=== PATIENT | female | born 1980 | race Caucasian/White ===

== ENCOUNTER 2018-03-24 12:55 | Inpatient (IN) | payer BC, SELFPAY ==
[2018-03-24 13:21] LABS: HCT 37.6 % (36.0-46.0); HGB 13.3 g/dL (12.0-15.5); Mean Corp. HGB Concentration 35.4 g/dL (32.0-36.0); Mean Corpuscular Hemoglobin 31.3 pg (27.0-33.0); Mean Corpuscular Volume 88.5 fL (80-95); Platelet Count 208 x1000/uL (130-400); RBC 4.25 m/cumm (4.00-5.20); RBC Distribution Width 12.9 % (11.7-14.6); White Blood Cell Count 16.35 k/cumm (4.4-10.8)
[2018-03-24] MEDS: Lactated Ringers 1,000 ML 1000 ML IV (17:45)
[2018-03-24] MEDS: Lactated Ringers 1,000 ML 125 ML IV (18:56)
[2018-03-25] MEDS: Lactated Ringers 500 ML IV (01:00)
[2018-03-25] MEDS: Bupivacaine 0.25% Pres-Free 30 ML VIAL (01:30)
[2018-03-25] MEDS: fentaNYL 100 MCG/2 ML VIAL IT (01:30)
[2018-03-25] MEDS: Ondansetron 4 MG/2 ML VIAL IVP (07:08)
[2018-03-25] MEDS: Hamamelis Leaf/Glycerin 100 EACH BOX PR (10:02)
[2018-03-25] MEDS: Scopolamine 1 MG/3 DAYS PATCH TD (10:03)
[2018-03-25] MEDS: Docusate Sodium 100 MG CAP PO (10:03)
[2018-03-25] MEDS: Lactated Ringers 1,000 ML 125 ML IV (10:04)
[2018-03-26] MEDS: Acetaminophen 325 MG TAB 650 MG PO ×2 (15:36→20:53)
[2018-03-26] MEDS: Ibuprofen 600 MG TAB PO ×2 (15:37→20:53)
[2018-03-27] MEDS: Acetaminophen 325 MG TAB 650 MG PO ×2 (02:01→09:19)
[2018-03-27] MEDS: Docusate Sodium 100 MG CAP PO (09:19)
[2018-03-27] MEDS: Hamamelis Leaf/Glycerin 100 EACH BOX PR (09:19)
[2018-03-27] MEDS: Ibuprofen 600 MG TAB PO (09:20)
== END 2018-03-27 14:00 | disposition home or self-care (01) | DRG 807 ==
PROVIDERS: Admitting Provider Family Medicine; PCP Family Medicine; Visit Provider Family Medicine
DX: O48.0 Post-term pregnancy (principal); Z37.0 Single live birth; O75.81 Maternal exhaustion complicating labor and delivery; Z3A.40 40 weeks gestation of pregnancy; O63.0 Prolonged first stage (of labor); O63.1 Prolonged second stage (of labor); O70.1 Second degree perineal laceration during delivery
CPT/HCPCS: 36415; 85027; 86850; 86900; 86901; J2405; J3010

== ENCOUNTER 2019-12-15 01:08 | Outpatient (CLI) | payer BC, SELFPAY ==
--- NOTE | 2019-12-15 | DI.US_ITS ---
EXAM: US OB 2-3 TRIMESTER CLINICAL HISTORY: SURVEY. TECHNIQUE: Transabdominal obstetrical ultrasound performed. COMPARISON: No exams were available for comparison FINDINGS: Number of fetuses: One. position: Vertex. heart rate: 149 bpm. Placental location: Posterior. No evidence of previa. BIOMETRIC DATA: EFW: 302 grms 39 % Composite Age: 19+ 4 weeks EDC: 06 May 2020 Amniotic fluid:. Amount of fluid is within normal limits. 2.3 centimeter anterior uterine fibroid. ANATOMICAL SURVEY: Within normal limits. IMPRESSION: 1. Single live intrauterine gestation as above. 2. Normal anatomic survey. DATA REPOSITORY:
== END 2019-12-15 01:28 ==
PROVIDERS: PCP Family Medicine; Visit Provider Family Medicine
DX: Z34.92 Encounter for supervision of normal pregnancy, unspecified, second trimester (principal)
CPT/HCPCS: 76805

== ENCOUNTER 2020-05-11 02:46 | Inpatient (IN) | payer BC, SELFPAY ==
[2020-05-11] VITALS (18 sets, daily range): BP systolic 114–158; BP diastolic 65–99; PULSE 59–202; RESP 16–22; TEMP 36.8–37; O2SAT 84–99
[2020-05-11] MEDS: Normal Saline Flush 10 ML SYR IVP (04:20)
[2020-05-11] MEDS: Penicillin G POT. 5,000,000 UNITS in Normal Saline 100 ML 200 UNITS IVPB (04:35)
[2020-05-11] MEDS: Normal Saline 100 ML 200 ML (04:35)
[2020-05-11 04:43] LABS: HCT 40.1 % (36.0-46.0); HGB 13.4 g/dL (11.2-15.7); MCH 30.2 pg (27.0-33.0); MCHC 33.4 % (32.0-36.0); MCV 90.3 fL (80-95); MPV 11.9 fL (8.0-11.0); Platelet Count 220 10^3/uL (130-400); RBC 4.44 10^6/uL (3.93-5.22); RDW 13.1 % (11.7-14.6); RDW-SD 42.5 fL; WBC 10.59 10^3/uL (4.4-10.8)
[2020-05-11 04:43] LABS: Source Nasopharynx
--- NOTE | 2020-05-11 04:53 | W.PM.OBHPL1 ---
Date of service: 05/11/20 Time of Service: 04:53 Assessment and Plan Assessment and plan (1) : Status: Acute Assessment and plan: at 40.6 presented in active labor. Contractions began at about 1am and quickly progressed to every 3 minutes. No ROM at home. When she arrived to the hospital SVE was 10/100/-1 with bulging bag. FHT category 1. She is requesting Nitrous for pain which was helpful. GBS+ so abx started. Rh+ RI HepB-. Anticipate quickly. Qualifiers: Weeks of gestation: 40 weeks Qualified Code(s): Z3A.40 - 40 weeks gestation of (2) GBS (group B Streptococcus carrier), +RV culture, currently : Status: Acute Assessment and plan: Pen G started with 5mu dose followed by 3mu q4h although doubtful she will get a second dose. OB-HPI Labor/Delivery History of Present Illness Reason for Visit: TERM LABOR Chief Complaint: Uterine Contractions. ARMANDO Calculator Estimated Delivery Date Method Current WG Current Estimate 05/05/20 LMP (Certain) 40w 6d History of Present Expected Delivery Route/Plan Specific Issues/Plan GBS+ in urine at initial OB Review of Systems All systems reviewed & are unremarkable except as noted in HPI and below PFSH Social History Smoking/Tobacco Use Status: Former Tobacco Use Smoking risk assessment performed?: Yes Meds Home Medications and Allergies Home Medications Medication Instructions Recorded Confirmed Type vit-iron fum-folic ac 1 tab PO DAILY 03/24/18 03/25/18 History [ Vitamin] Allergies Allergy/AdvReac Type Severity Reaction Status Date / Time No Known Allergies Allergy Unverified 03/24/18 16:19 Exam Physical Exam Vital signs: Pulse BP 69 115/70 05/11/20 04:50 05/11/20 04:50 Detailed Labor and Delivery Exam Delvalle Score: Cervical Points Exam 0 1 2 3 Dilation Closed 1-2cm 3-4 cm 5-6cm Effacement 0-30% 40-50% 60-70% 80% Consistency Firm Medium Soft Station -3 -2 -1,0 +1,+2 Position Posterior Mid Anterior Fetus A Heart Rate Baseline: 120 Monitor Accelerations: Present Monitor Decelerations: None Variability: Moderate (6-25 BPM) Presentation: Vertex Categories: Category I HEENT Exam HEENT Exam: Normal Cardiovascular Exam Cardiovascular Exam: Normal Exam Exam: Normal Results Abnormal Lab Findings: Abnormal Labs 05/11/20 04:30 MPV 11.9 H Risk Assessment Risk for Shoulder Dystocia Historical/Initial OB: NEGATIVE FOR: Pelvic Abnormality, Pre- BMI>30, Previous Shoulder Dystocia or Previous Macrosomia 40 Weeks: NEGATIVE FOR: EFW> 4500 gms, Maternal Weight Gain >40lb or Post Dates Increased Risk?: No Risk for Pre-Eclampsia Daily Dose ASA Indicated: No Yes, if one or more: NEGATIVE FOR: Hx Pre-E/Gest HTN, Chronic HTN, Multiple Gestation, Pre-gestational DM, Renal Disease, Systemic Lupus or APA Syndrome Yes, if 2 or more: POSITIVE FOR: Age>= 35 yrs; NEGATIVE FOR: Nulliparity, >10yr btwn pregnancies, BMI>30, ethinicty, Mother/Sister w/ Pre-E or Previous IUGR Risk for Post- Hemorrhage Initial: NEGATIVE FOR: Multiple Gestation, Previous PPH, Known Clotting Deficiency, Grand Multiparity or Anticoagulation At Risk?: No Risks Reviewed Risks Reviewed Upon Admission: Yes
[2020-05-11 05:21] LABS: Influenza A PCR Negative (Negative); Influenza B PCR Negative (Negative); RSV PCR Negative (Negative)
[2020-05-11 05:34] LABS: COVID-19 PCR Negative (Negative)
[2020-05-11] MEDS: miSOPROStol 200 MCG TAB 400 MCG PO (06:20)
[2020-05-11] MEDS: Oxytocin 10 UNITS/ML VIAL IM (06:30)
[2020-05-11] MEDS: Oxytocin/Normal Saline 30 UNIT/500 ML BAG 95 UNITS IV (06:45)
[2020-05-11] MEDS: Lidocaine 1% Multi-Dose 20 ML VIAL IJ (07:00)
--- NOTE | 2020-05-11 07:15 | OBVDS_ITS ---
Date of service: 05/11/20 Time of Service: 07:15 OB Labor/ Delivery Information Baby A Delivery Delivery Method: Spontaneaous Presentation: Vertex Vertex Position: Left Occipital Anterior Cord Description-Baby A: 3 Vessels Amniotic Fluid: Meconium Estimated Blood Loss: 400 Delivery Outcome: Liveborn Complications: none Infant Transferred: Remains with Mother Note: 40 yo who presented at 40 weeks and 6 days in active labor. Arrived fully dilated. Used nitrous with good effect. AROM performed for mec stained fluid. She then commenced pushing and after a position change to hands and knees, pushed effectively to deliver a liveborn female over a second degree laceration with small extension into the right vaginal sidewall. One nuchal cord was easily reduced. Placenta delivered soon thereafter and was intact with three vessel cord. Pitocin IV started but IV malfunctioned briefly so IM pitocin was given due to boggy uterus. After IM pit, uterus was firm. IV pit given as well. Placenta delivered soon thereafter and was intact with three vessel cord. Perineum repaired in the usual fashion with good hemostasis achieved. Slow trickle of blood still present. Miso given. Fundus firm. Bimanual performed and clot extracted from lower uterine segment with decrease in bleeding. Mom and baby bonding well. Providers Doctor: Ayah Flynn Business Executive: Vinny Osullivan Nurse: Tona Garcia RN Nurse: Agustina Robb Other: Alex Osullivan Labor/Delivery Information Number of Babies in Womb: 1 Steroids Given: None Reason Steroids Not Administered: N/A Group Beta Strep: Positive Antibiotics Administered: Yes Number of Doses of Antibiotics: 1 Medication in Delivery: Oxytocin IV, Oxytocin IM, 400mcg misoprostol PO Maternal Complications: None Shoulder Dystocia: No Stages of Labor Onset of Labor Date: 05/11/20 Onset of Labor Time: 01:00 Complete Dilatation Date: 05/11/20 Complete Dilatation Time: 04:10 Labor - Stage 1 Duration: 0 minutes ROM Baby A: 05/11/20 ROM Baby A: 05:25 ROM Total Time- Baby A: [id number] Infant Delivery Date-Baby A: 05/11/20 Delivery Time-Baby A: 06:02 Labor Stage 2 Duration: 1 hours and 52 minutes Placenta Delivery Date-Baby A: 05/11/20 Placenta Delivery Time-Baby A: 06:10 Labor-Stage 3 Duration: 8 minutes Total Length of Labor-Baby A: 5 hours and 2 minutes Placenta Cultured: No Placenta Status: Delivered Baby A Gender: Female Gestational Status: Term (39-41.6 wks) Gestational Age in Weeks/Days: 40 Weeks and 6 Days Score-1 Minute Interval(Baby A) Heart Rate-1 minute: 100 BPM or Greater Respiratory Effort- 1 minute: Spontaneous/Strong Cry Muscle Tone-1 minute: Active Movement Reflex Response-1 minute: Prompt Response Color-1 minute: Pallor or Cyanosis Total Score-1 minute: 8 Score-5 Minute Interval(Baby A) Heart Rate- 5 minute: 100 BPM or Greater Respiratory Effort-5 minute: Spontaneous/Strong Cry Muscle Tone-5 minute: Active Movement Reflex Response-5 minute: Prompt Response Color-5 minute: [place]/No Cyanosis Total Score- 5 minute: 10 Interventions Repair of Laceration Type: Perineal , Laceration Extension: Second Degree . Sponge Count Correct: Yes , Sharp Count Correct: Yes . Laceration Repair Note: Small second degree laceration with extension into right vaginal side wall sustained. Analgesia with 1% lidocaine achieved. Repair done in the usual fashion with 3.0 vicryl. Good hemostasis achieved
[2020-05-11] MEDS: Acetaminophen 325 MG TAB 650 MG PO ×3 (08:45→22:24)
[2020-05-11] MEDS: Ibuprofen 600 MG TAB PO ×3 (08:45→22:25)
[2020-05-11] MEDS: Hamamelis Leaf/Glycerin 100 EACH BOX PR (08:46)
[2020-05-11] MEDS: Docusate Sodium 100 MG CAP PO (16:35)
[2020-05-12 05:35] VITALS: BP 124/87; PULSE 67; RESP 18; TEMP 36.4; O2SAT 96
[2020-05-12] MEDS: Docusate Sodium 100 MG CAP PO ×2 (05:37→19:45)
[2020-05-12] MEDS: Ibuprofen 600 MG TAB PO ×3 (05:38→19:45)
[2020-05-12] MEDS: Acetaminophen 325 MG TAB 650 MG PO ×3 (05:38→19:45)
[2020-05-12 07:07] LABS: HCT 34.2 % (36.0-46.0); HGB 11.6 g/dL (11.2-15.7); MCH 30.6 pg (27.0-33.0); MCHC 33.9 % (32.0-36.0); MCV 90.2 fL (80-95); MPV 11.9 fL (8.0-11.0); Platelet Count 184 10^3/uL (130-400); RBC 3.79 10^6/uL (3.93-5.22); RDW 13.4 % (11.7-14.6); RDW-SD 43.4 fL; WBC 9.38 10^3/uL (4.4-10.8)
--- NOTE | 2020-05-12 08:47 | W.PM.OBPNV1 ---
Date of service: 05/12/20 Time of Service: 08:47 Assessment and Plan Assessment and plan (1) Routine follow-up: Status: Acute Assessment and plan: Luis is doing very well on PPD 1, no concerns. Nursing going well. Has a breast pump at home. Routine care. Anticipate home tomorrow. Subjective Subjective Patient comments: No complaints baby status: Doing well, Nursing well, Rooming in and Strong Bonding Observed feeding status: Exclusively breast feeding Narrative: Luis is doing well. Bleeding minimal, up and about, voiding, no BM yet. Pain minimal. Nursing is going well, still working on latch. Exam Physical Exam Vital signs: Temp Pulse Resp BP Pulse Ox 36.4 C L 67 18 124/87 96 05/12/20 05:35 05/12/20 05:35 05/12/20 05:35 05/12/20 05:35 05/12/20 05:35 Constitutional Constitutional: no acute distress Fundal Exam Fundus: Below Umbilicus and Firm Extremities Exam Extremity Exam: Normal Results Hemoglobin/Hematocrit: Hgb 11.6 g/dL (11.2-15.7) 05/12/20 06:54 Hct 34.2 % (36.0-46.0) L 05/12/20 06:54 Abnormal Lab Findings: Abnormal Labs 05/11/20 05/12/20 04:30 06:54 RBC 3.79 L Hct 34.2 L MPV 11.9 H 11.9 H
[2020-05-12 11:35] VITALS: BP 114/72; PULSE 69; RESP 18; TEMP 36.7; O2SAT 95
[2020-05-12 15:45] VITALS: BP 127/82; PULSE 64; RESP 18; TEMP 36.9; O2SAT 98
[2020-05-13 00:27] VITALS: BP 124/56; PULSE 56; RESP 19; TEMP 36.8; O2SAT 96
[2020-05-13] MEDS: Acetaminophen 325 MG TAB 650 MG PO (06:23)
[2020-05-13] MEDS: Docusate Sodium 100 MG CAP PO (06:23)
[2020-05-13] MEDS: Ibuprofen 600 MG TAB PO (06:24)
[2020-05-13 07:53] VITALS: BP 116/74; PULSE 71; RESP 18; TEMP 36.8; O2SAT 97
--- NOTE | 2020-05-13 08:06 | W.PM.OBDISCH ---
Date of service: 05/13/20 Time of Service: 08:07 DS: Diagnosis Discharge Diagnosis (1) Routine follow-up: Status: Acute Asessment and Plan: 40 yo >2 who delivered via at 40w6d 2 days ago. She has done very well . is going well. Mood is good, bonding well with baby. Minimal bleeding/cramping. Eating/drinking well and passing gas, but no BM yet. She will be discharged home today, follow up in the office in 2 weeks and 6 weeks. We will see her Sunday with the baby. Discharge Plan Disposition Patient Disposition: HOME Condition: Good Discharge Details Reason For Visit: TERM LABOR Admit Date/Time: 05/11/20 06:32 Admit Provider: Vinny Osullivan Attending Provider: Vinny Osullivan Primary Care Provider: Vinny Osullivan Hospital Course Hospital Course: 40 yo now 2 who presented at 40w6d in active labor, 10cm on arrival to the hospital. She proceeded to have an uncomplicated over a small second degree perineal laceration. See H&P and delivery note for futher details. She was GBS positive, only received one dose in labor due to rapid labor. Baby was monitored for 48 hours with no signs of sepsis. Baby was LGA, passed blood sugar protocol. APGARs 8/10. She did well with minimal bleeding and discomfort. Mood was excellent. Voiding well, passing gas. Home Meds and New Rx's Prescriptions: New acetaminophen [Tylenol] 325 mg Tablet 650 mg PO Q4H PRN PRNQty: 0 RF: 0 docusate sodium [Colace] 100 mg Capsule 100 mg PO BID PRN PRNQty: 0 RF: 0 ibuprofen [IBU] 600 mg Tablet 600 mg PO Q6H PRN PRNQty: 0 RF: 0 Continued Vitamin 27 mg iron- 0.8 mg Tablet 1 tab PO DAILY RF: 0 Discharge Instructions Stand Alone Forms: BC Instructions, BC Post Vaginal Deliver Referrals: Vinny Osullivan [Primary Care Provider] - (Follow up in 2 weeks and 6 weeks.) Activity:: Activity as Tolerated Equipment/Supplies:: No Equipment Needed Diet:: As Tolerated Discharge Orders Discharge Orders: Discharge Order (Routine); Ordered 05/13/20 Ordered By: Ayah Flynn OB:DS Summary Summary Vaginal Delivery Method: Spontaneaous Laceration Description: Perineal Laceration Extension: Second Degree complications OB DS: none Contraception Discussed Contraception Discussed: No, Gender-Baby A: Female weight: 4170 g Disposition of Baby A: Home Status at Discharge Functional status at discharge: independent ambulation Overall status at discharge: patient is back to baseline Mental Status: mental status grossly normal Speech and Movement: speech and movement normal Mood: congruent mood Affect: normal affect Time Spent with Patient providing and/or coordinating discharge services: Less than 30 minutes Exam Physical Exam Vital signs: Temp Pulse Resp BP Pulse Ox 36.8 C 56 L 19 124/56 L 96 05/13/20 00:27 05/13/20 00:27 05/13/20 00:27 05/13/20 00:27 05/13/20 00:27 Constitutional Constitutional: no acute distress Respiratory Exam Respiratory Exam: Normal Cardiovascular Exam Cardiovascular Exam: Normal Fundal Exam Fundus: Below Umbilicus and Firm Exam Perineum: Repair Intact Extremities Exam Comment: trace edema bilaterally Neurological Exam Neurological Exam: Normal Psychiatric Exam Psychiatric Exam: Normal [facility] Social History Smoking/Tobacco Use Status: Never Smoking risk assessment performed?: Yes Alcohol Intake: never Substance use type: does not use DS: Data Vitals/I&O Vitals and I&O: Vital Signs Temperature 36.8 C 05/13/20 00:27 Pulse 56 L 05/13/20 00:27 Pulse Rhythm Regular 05/12/20 19:45 Respiratory Rate 19 05/13/20 00:27 Respiratory Depth Normal 05/12/20 19:45 Blood Pressure 124/56 L 05/13/20 00:27 Blood Pressure Mean 78 05/13/20 00:27 Pulse Oximetry 96 05/13/20 00:27 Oxygen Delivery Method Room Air 05/11/20 04:54 Oxygen Flow Rate 0 05/11/20 04:54 Pain Level 3 05/13/20 06:24 Intake & Output 05/12/20 05/12/20 05/13/20 11:59 23:59 11:59 Intake Total 480 / 1180 700 / 1180 1120 / 1120 Balance 480 / 1180 700 / 1180 1120 / 1120 Intake: Oral 480 / 1180 700 / 1180 112 / 1120 Other: Urine Color [place]
[2020-05-13] MEDS: Hamamelis Leaf/Glycerin 100 EACH BOX PR (09:15)
== END 2020-05-13 11:38 | disposition home or self-care (01) | DRG 807 ==
PROVIDERS: Family Medicine; Admitting Provider Family Medicine; PCP Family Medicine; Visit Provider Family Medicine
DX: O99.820 Streptococcus B carrier state complicating pregnancy (principal); Z37.0 Single live birth; Z3A.40 40 weeks gestation of pregnancy; O77.0 Labor and delivery complicated by meconium in amniotic fluid; O69.81X0 Labor and delivery complicated by cord around neck, without compression, not applicable or unspecified; O70.1 Second degree perineal laceration during delivery
CPT/HCPCS: 36415; 85027; 86850; 86900; 86901; J2540; J2590; J3490